=== PATIENT | female | born 1950 | race Caucasian/White ===

== ENCOUNTER 2016-12-06 10:07 | Outpatient (CLI) | payer MEDICARE | END 2016-12-06 10:08 | disposition home or self-care (01) | DX: N83.202 Unspecified ovarian cyst, left side (principal); N83.201 Unspecified ovarian cyst, right side ==

== ENCOUNTER 2018-11-21 08:14 | Emergency (ER) | payer MEDICARE ==
--- NOTE | 2018-11-21 08:38 | ED Physician Documentation ---
PD HPI CHEST PAIN - Stated complaint Stated Complaint: CHEST DISCOMFORT - Chief complaint Chief Complaint: Cardiac - History obtained from History obtained from: Patient - History of Present Illness Timing - onset: How many hours ago (2), Today Timing - onset during: Light activity Timing - details: Abrupt onset, Still present, Waxing and waning Quality: Aching Location: Substernal Radiation: Jaw, Left upper extremity Improved by: Nothing (randomly has icnreases in the pain for 1-2 seconds and then decreases.). No: Rest Worsened by: No: Exertion, Inspiration, Movement Associated symptoms: Shortness of air, Nausea. No: Diaphoresis, Feeling faint / dizzy, General Weakness, Palpitations Similar symptoms before: Has not had sx before Recently seen: Not recently seen Review of Systems Constitutional: denies: Fever, Chills, Myalgias Nose: denies: Rhinorrhea / runny nose, Congestion Throat: denies: Sore throat Cardiac: denies: Palpitations Respiratory: denies: Cough GI: denies: Abdominal Pain, Nausea, Vomiting, Constipation, Diarrhea : denies: Dysuria Neurologic: denies: Head injury PD PAST MEDICAL HISTORY - Past Medical History Past Medical History: Yes Cardiovascular: Hypertension, High cholesterol GI: GERD - 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 - Present Medications Home Medications: Ambulatory Orders Medication Instructions Recorded Confirmed Famotidine 20 mg PO DAILY #20 tablet 11/21/18 Lidocaine Viscous 2% [Xylocaine 5 ml PO Q4H PRN #100 ml 11/21/18 Viscous 2%] - Allergies Allergies/Adverse Reactions: Allergies Allergy/AdvReac Type Severity Reaction Status Date / Time alcohol Allergy Unknown Verified 11/21/18 09:12 opiates Allergy Unknown Uncoded 11/21/18 09:12 - Social History Does the pt smoke?: No Smoking Status: Former smoker Does the pt drink ETOH?: No Does the pt have substance abuse?: No - Immunizations Immunizations are current?: Yes PD ED PE NORMAL - Vitals Vital signs reviewed: Yes - General General: Alert and oriented X 3, No acute distress, Well developed/nourished - HEENT HEENT: Ears normal, Moist mucous membranes, Pharynx benign - Neck Neck: Supple, no meningeal sign, No adenopathy, No JVD - Respiratory Respiratory: Clear bilaterally - Abdomen Abdomen: Soft, Non tender - Derm Derm: Normal color, Warm and dry - Extremities Extremities: No edema, No calf tenderness / cord - Neuro Neuro: Alert and oriented X 3, No motor deficit, Normal speech Results - Vitals Vitals: Vital Signs - 24 hr 11/21/18 11/21/18 08:17 09:21 Temperature 36.7 C Heart Rate 77 70 Respiratory 18 20 Rate Blood Pressure 157/82 H 140/76 H O2 Saturation 97 96 Oxygen O2 Source Room air - Labs Labs: Laboratory Tests 11/21/18 11/21/18 11/21/18 08:25 08:30 08:30 WBC 6.5 RBC 4.73 Hgb 15.3 Hct 44.0 MCV 93.1 MCH 32.3 H MCHC 34.7 RDW 13.0 Plt Count 235 MPV 7.5 L Neut # (Auto) 2.5 Lymph # (Auto) 2.9 [place] # (Auto) 0.7 Eos # (Auto) 0.3 Baso # (Auto) 0.1 Absolute Nucleated RBC 0.00 Nucleated RBC % 0.1 D-Dimer Sodium 140 Potassium 3.3 L Chloride 103 Carbon Dioxide 27 Anion Gap 10.0 BUN 21 H Creatinine 0.8 Estimated GFR (MDRD) 71 L Glucose 99 Calcium 9.5 Total Bilirubin 1.1 H AST 22 ALT 25 Alkaline Phosphatase 94 Troponin I B-Natriuretic Peptide Total Protein 8.1 Albumin 4.6 Globulin 3.5 Albumin/Globulin Ratio 1.3 Lipase 38 Urine Color LIGHT YELLOW Urine Clarity CLEAR Urine pH 7.0 Ur Specific [place] <=1.005 Urine Protein NEGATIVE Urine Glucose (UA) NEGATIVE Urine Ketones NEGATIVE Urine Occult Blood NEGATIVE Urine Nitrite NEGATIVE Urine Bilirubin NEGATIVE Urine Urobilinogen 0.2 (NORMAL) Ur Leukocyte Esterase NEGATIVE Ur Microscopic Review NOT INDICATED Urine Culture Comments NOT INDICATED 11/21/18 11/21/18 11/21/18 08:30 08:30 08:30 WBC RBC Hgb Hct MCV MCH MCHC RDW Plt Count MPV Neut # (Auto) Lymph # (Auto) [place] # (Auto) Eos # (Auto) Baso # (Auto) Absolute Nucleated RBC Nucleated RBC % D-Dimer 387.0 H Sodium Potassium Chloride Carbon Dioxide Anion Gap BUN Creatinine Estimated GFR (MDRD) Glucose Calcium Total Bilirubin AST ALT Alkaline Phosphatase Troponin I < 0.04 B-Natriuretic Peptide 58 Total Protein Albumin Globulin Albumin/Globulin Ratio Lipase Urine Color Urine Clarity Urine pH Ur Specific [place] Urine Protein Urine Glucose (UA) Urine Ketones Urine Occult Blood Urine Nitrite Urine Bilirubin Urine Urobilinogen Ur Leukocyte Esterase Ur Microscopic Review Urine Culture Comments PD MEDICAL DECISION MAKING - ED course Complexity details: re-evaluated patient (She had prompt directory improvement with the GI cocktail. Her EKG and blood tests are normal with the d-dimer being in above the lab normal value but below the commonly accepted literature value of 500 as abnormal. Her chest x-ray showed a similar prior lower base nodule that is been present on prior CT. There is no apparent change. Again no acute processes are seen. At this point we will treat her as esophagitis. She is feeling better at this time.), considered differential, d/w patient Departure - Departure Disposition: 01 Home, Self Care Clinical Impression: Chest discomfort, Esophagitis, acute Condition: Stable Record reviewed to determine appropriate education?: Yes Instructions: ED Chest Pain Atypical Unkn Cause, ED GERD Follow-Up: Chiqui Garza PA [Primary Care Provider] - Prescriptions: Famotidine 20 mg PO DAILY #20 tablet Lidocaine Viscous 2% [Xylocaine Viscous 2%] 5 ml PO Q4H PRN #100 ml PRN Reason: Pain Comments: There is no signs of more significant cause for your chest discomfort. He did seem to get improvement with the antacid and lidocaine. Would presume therefore he has some irritation of the esophagus and we treat that with antacid and acid reducing medicines. He can add the lidocaine periodically with antacid if needed. Recheck if not improved over the next several days or if other symptoms develop concurrent with that. Discharge Date/Time: 11/21/18 10:55
[2018-11-21 08:54] LABS: BASOPHILS # (AUTO) 0.1 10^3/uL (0.0-0.1); BASOPHILS % (AUTO) 0.9 %; EOSINOPHILS # (AUTO) 0.3 10^3/uL (0.0-0.7); EOSINOPHILS % (AUTO) 5.4 %; HGB - HEMOGLOBIN 15.3 g/dL (12.0-16.0); LYMPHOCYTES # (AUTO) 2.9 10^3/uL (1.5-3.5); LYMPHOCYTES % (AUTO) 45.1 %; MEAN CORPUSCULAR HEMOGLOBIN 32.3 pg (27.0-31.0); MEAN CORPUSCULAR HGB CONC 34.7 g/dL (32.0-36.0); MEAN CORPUSCULAR VOLUME 93.1 fL (81.0-99.0); MEAN PLATELET VOLUME 7.5 fL (7.9-10.8); MONOCYTES # (AUTO) 0.7 10^3/uL (0.0-1.0); MONOCYTES % (AUTO) 10.5 %; NEUTROPHILS # (AUTO) 2.5 10^3/uL (1.5-6.6); NEUTROPHILS % (AUTO) 38.1 %; PLT - PLATELET COUNT 235 10^3/uL (130-450); RED BLOOD COUNT 4.73 10^6/uL (4.20-5.40); WHITE BLOOD COUNT 6.5 x10^3/uL (4.8-10.8)
[2018-11-21] MEDS ORDERED: KETOROLAC 15 MG/ML VIAL IVP STA (08:56)
[2018-11-21] MEDS ORDERED: MAG HYDROX/AL HYDROX/SIMETH 30 ML UDC PO STA (08:56)
[2018-11-21] MEDS ORDERED: LIDOCAINE VISCOUS 2% 15 ML UDC MM STA (08:56)
[2018-11-21 09:10] LABS: ALBUMIN 4.6 g/dL (3.2-5.5); ALBUMIN/GLOBULIN RATIO 1.3 (1.0-2.2); BILIRUBIN,TOTAL 1.1 mg/dL (0.2-1.0); CALCIUM 9.5 mg/dL (8.5-10.3); CREATININE 0.8 mg/dL (0.4-1.0); TOTAL PROTEIN 8.1 g/dL (6.7-8.2)
[2018-11-21 09:25] VITALS: BP 140/76
--- NOTE | 2018-11-21 09:25 | XRAY Report ---
Reason: chest pain Procedure Date: 11/21/2018 Accession Number: [id number] / [id number] Procedure: XR - Chest 1 View X-Ray CPT Code: 03119 FULL RESULT: EXAM: CHEST RADIOGRAPHY EXAM DATE: 11/21/2018 09:02 AM. CLINICAL HISTORY: Chest pain. COMPARISON: Chest CT from 05/08/2011. TECHNIQUE: 1 view. FINDINGS: Lungs/Pleura: Mild hazy bibasilar opacities are present. There is a 5 mm nodular opacity overlying the right base. No pleural effusion or pneumothorax. Mediastinum: Cardiomediastinal silhouette and pulmonary vasculature are within normal limits. Other: None. IMPRESSION: 1. Probable mild bibasilar atelectasis. 2. Small nodular opacity overlying the right lung base, possibly pulmonary nodule or soft tissue density. On remote prior chest CT of 2010, small nodules were demonstrated in the right middle and lower lobes and could correspond to the radiographic finding. RADIA
[2018-11-21 09:44] LABS: BILIRUBIN,URINE NEGATIVE (NEGATIVE); GLUCOSE, URINE (UA) NEGATIVE (NEGATIVE); KETONES,URINE (UA) NEGATIVE (NEGATIVE); LEUKOCYTE ESTERASE, URINE NEGATIVE (NEGATIVE); NITRITE,URINE NEGATIVE (NEGATIVE); OCCULT BLOOD,URINE NEGATIVE (NEGATIVE); PROTEIN,URINE NEGATIVE (NEGATIVE); UROBILINOGEN,URINE 0.2 (NORMAL) E.U./dL (NORMAL)
[2018-11-21 09:45] LABS: CLARITY,URINE CLEAR (CLEAR)
[2018-11-21] MEDS ORDERED: FAMOTIDINE 20 MG TABLET PO STA (10:02)
== END 2018-11-21 10:55 | disposition home or self-care (01) ==
LOC: ED 08:14
DX: K20.9 Esophagitis, unspecified (principal); I10 Essential (primary) hypertension; Z87.891 Personal history of nicotine dependence
CPT/HCPCS: 36415; 71045; 80053; 81003; 83690; 83880; 84484; 85025; 85379; 93005; 96374; 99283; 99284; A9270; 81001; 87086

== ENCOUNTER 2020-05-11 09:24 | Emergency (ER) | payer MEDICARE ==
--- NOTE | 2020-05-11 09:51 | ED Physician Documentation ---
PD HPI BACK PAIN - Stated complaint Stated Complaint: HIP/BACK PX - Chief complaint Chief Complaint: Back Pain - History obtained from History obtained from: Patient - History of Present Illness Timing - onset: How many weeks ago (2) Timing - duration: Weeks (2) Timing - details: Abrupt onset, Still present Location: Lower, Left (iliac crest area) Associated symptoms: No: Fever, Weakness, Numbness, Incontinent of urine Worsened by: Movement, Twisting Contributing factors: Twisting (onset with rotational movement but still hurting.) Similar symptoms before: Has not had sx before Recently seen: Not recently seen Review of Systems Constitutional: denies: Fever, Chills Skin: denies: Rash, Lesions Neurologic: denies: Focal weakness, Numbness PD PAST MEDICAL HISTORY - Past Medical History Cardiovascular: Hypertension, High cholesterol GI: GERD - 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: 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 - Present Medications Home Medications: Ambulatory Orders Medication Instructions Recorded Confirmed Famotidine 20 mg PO DAILY #20 tablet 11/21/18 Lidocaine Viscous 2% [Xylocaine 5 ml PO Q4H PRN #100 ml 11/21/18 Viscous 2%] Lidocaine Patch 5% [Lidoderm Patch] 1 patch TOP DAILY PRN #10 patch 05/11/20 Naproxen 375 mg PO TID #20 tablet 05/11/20 Tizanidine HCl 4 mg PO TID PRN #25 capsule 05/11/20 - Allergies Allergies/Adverse Reactions: Allergies Allergy/AdvReac Type Severity Reaction Status Date / Time alcohol Allergy Unknown Verified 05/11/20 09:35 opiates Allergy Unknown Uncoded 05/11/20 09:35 - Social History Does the pt smoke?: No Smoking Status: Former smoker Does the pt drink ETOH?: No Does the pt have substance abuse?: No - Immunizations Immunizations are current?: Yes PD ED PE NORMAL - Vitals Vital signs reviewed: Yes - General General: Alert and oriented X 3, Well developed/nourished, Other (appears uncomfortable with movement, guarded ROM for the low back. ) - Neck Neck: Supple, no meningeal sign, No adenopathy - Cardiac Cardiac: RRR, No murmur - Respiratory Respiratory: Clear bilaterally - Abdomen Abdomen: Soft, Non tender - Back Back: No CVA TTP, No spinal TTP (but is tender at the upper left SI arrea. ) - Derm Derm: Normal color, Warm and dry - Neuro Neuro: Alert and oriented X 3, No motor deficit, No sensory deficit, Normal speech, Other (normal reflexes at knees. ) Results - Vitals Vitals: Oxygen O2 Source Room air - Rads (name of study) lumbar CT Radiology: Prelim report reviewed (no acute findings (arthritic changes and nonspecific disk changes).), See rad report PD MEDICAL DECISION MAKING - ED course Complexity details: reviewed results, considered differential (abrupt pain in older woman, so has some flag for imaging. To get CT to ensure no compression fx, bone pathology, etc. Does not have caudal symptoms so would not need MRI. ), d/w patient ED course: SI injection done left side with Kenalog and Marcaine. She gets nauseated with any opiates and did not like lightheaded with Tramadol, so does not want "pain meds". Will try other modalities anyway. Departure - Departure Disposition: 01 Home, Self Care Clinical Impression: Sacroiliac joint pain Condition: Stable Record reviewed to determine appropriate education?: Yes Instructions: ED Sacroiliitis Follow-Up: Chiqui Garza PA [Primary Care Provider] - Prescriptions: Lidocaine Patch 5% [Lidoderm Patch] 1 patch TOP DAILY PRN #10 patch PRN Reason: pain Naproxen 375 mg PO TID #20 tablet Tizanidine HCl 4 mg PO TID PRN #25 capsule PRN Reason: Spasms Comments: Gentle stretching for the low back. Particularly do sacroiliac type stretching exercises. We can use a low-dose anti-inflammatory for short-term so as to not bother your kidney function. Naproxen anti-inflammatory twice daily with food for only up to 10 days. Tizanidine muscle relaxant 3 times a day to help with stiffness. To that add Tylenol as needed for pain 500 mg 4 times a day. Lidocaine patches to the area that most pain may be helpful as well. Follow-up with your primary care for further evaluation and treatment and potential adding physical therapy. Your CT scan did not show any acute abnormalities. There is some common disc abnormalities and some arthritic changes but no acute compression injury or bone lesions to suggest a more significant cause. Discharge Date/Time: 05/11/20 12:20
[2020-05-11] MEDS ORDERED: ACETAMINOPHEN 500 MG TABLET PO STA (10:20)
[2020-05-11] MEDS ORDERED: TRIAMCINOLONE 40 MG/ML VIAL IM STA (10:20)
[2020-05-11] MEDS ORDERED: methocarbamoL 500 MG TABLET PO STA (10:20)
[2020-05-11] MEDS ORDERED: KETOROLAC 30 MG/ML VIAL IM STA (10:20)
--- NOTE | 2020-05-11 11:51 | CT Report ---
PROCEDURE: LUMBAR SPINE WO INDICATIONS: low back/left SI area pain abruptly TECHNIQUE: Noncontrast 3 mm thick sections acquired from the T12 level to the sacrum. Sagittal and coronal refo rmats were constructed. For radiation dose reduction, the following was used: automated exposure co ntrol, adjustment of mA and/or kV according to patient size. COMPARISON: None. FINDINGS: Image quality: Excellent. Bones: There is dextroscoliosis of the lumbar spine centered at L2-L3 with an approximately 7 degrees [place] angle. Left lateral listhesis of L2 on L3 measuring approximately 4 mm. No listhesis in the sag ittal plane. There is straightening of the usual lumbar lordosis. Disc height loss from L2-L3 through L5-S1 with associated degenerative endplate changes, most pronounced at L2-L3 and L5-S1 where there is both vacuum disc phenomenon and marked loss of disc space with areas of probable [id number] endp late contact. Vertebral body heights are maintained with no evidence of suspicious lytic or blastic o sseous lesion. T12-L1: No spinal canal or neural foraminal stenosis. L1-L2: No spinal canal or neural foraminal stenosis. L2-L3: Disc bulge flattens and indents the ventral thecal sac. Foraminal components of the disc bu lge combine with posterior ossific ridging of the endplates and facet hypertrophy to produce mild angela ateral neural foraminal stenosis. L3-L4: Diffuse disc bulge flattens the ventral thecal sac. Foraminal components of the disc bulge c ombined with facet hypertrophy to produce mild bilateral neural foraminal stenosis L4-L5: Diffuse disc bulge and a superimposed broad-based posterior disc protrusion flatten and inde nt the ventral thecal sac with probable mass effect upon the descending L5 nerve roots within both holden barticular zones. Foraminal components of the disc bulge combined with facet hypertrophy to produce m ild bilateral neural foraminal stenosis. L5-S1: Diffuse disc bulge with a superimposed broad-based posterior disc protrusion. Disc material effaces fat in the right greater than left subarticular zones with probable mass effect upon the desc ending right greater than left S1 nerve roots. Foraminal components of the disc bulge contribute to m ild right and moderate left neural foraminal stenosis. Disc material abuts and may flatten the unders urface of the exiting left L5 nerve root. Sacrum: Visualized upper sacrum appears intact with no evidence of fracture or suspicious destructive osseous lesion. Mild bilateral sacroiliac degenerative changes, worse on the left, characterized by bilateral joint space narrowing with intra-articular air and periarticular subchondral sclerosis. Soft tissues: Partially visualized left ovarian cyst similar in size to pelvic ultrasound obtained 06/2017. Punctate nonobstructing left renal calculi. Postsurgical changes of prior right nephrectomy with metallic surgical clips in the nephrectomy bed region. The duodenum has extended into the right nephrectomy bed adjacent to the posterior right hepatic lobe. There is moderate to severe hepatic edson atosis with a markedly decreased hepatic parenchymal attenuation. Extensive aortic atherosclerosis wi th approximately 60% narrowing of the aorta at the bifurcation (series 3 image 63). Paravertebral and paraspinous soft tissues are within normal limits. IMPRESSION: No findings to explain a prompt onset left low back/sacral pains. Specifically, no evidence of fractu re or suspicious lytic/blastic osseous lesion. Degenerative changes of the left greater the right sacroiliac joints, potential source of pain althou gh an abrupt onset would be unusual for degenerative changes. Lower lumbar spine degenerative changes worst at L5-S1 where there is moderate left neural foraminal stenosis producing mild mass effect upon the exiting left L5 nerve root. Correlate for any correspond ing left L5 radicular symptoms. Facet osteoarthropathy from L3-L4 through L5-S1, an additional potent ial source of chronic low back pain. Punctate nonobstructing left renal calculi. Recent stone passage could potentially explain an abrupt onset left flank/back pain. Postsurgical changes of right nephrectomy. Moderate to severe hepatic steatosis. Extensive aortic atherosclerosis with [id number] approximately 60% narrowing of the distal aort a near the bifurcation. Reviewed by: Cj Ledesma MD on 05/11/2020 11:50 AM PDT Approved by: Cj Ledesma MD on 05/11/2020 11:50 AM PDT Station ID: [id number]
[2020-05-11 12:14] VITALS: BP 141/92
== END 2020-05-11 12:20 | disposition home or self-care (01) ==
LOC: ED 09:24
DX: M53.3 Sacrococcygeal disorders, not elsewhere classified (principal); M25.552 Pain in left hip; M47.817 Spondylosis without myelopathy or radiculopathy, lumbosacral region; K76.0 Fatty (change of) liver, not elsewhere classified; I10 Essential (primary) hypertension; Z87.891 Personal history of nicotine dependence
CPT/HCPCS: 20552; 72131; 96372; 99284; A9270

== ENCOUNTER 2020-09-21 18:21 | Outpatient (CLI) | payer MEDICARE | END 2020-09-21 18:22 | disposition home or self-care (01) | LOC: COV 18:21 | PROVIDERS: ATTEND Family Medicine | DX: R50.9 Fever, unspecified (principal); M79.10 Myalgia, unspecified site; R53.83 Other fatigue; R07.0 Pain in throat; R43.9 Unspecified disturbances of smell and taste; R11.0 Nausea; J34.89 Other specified disorders of nose and nasal sinuses; Z20.828 Contact with and (suspected) exposure to other viral communicable diseases ==

== ENCOUNTER 2022-01-23 08:00 | Outpatient (CLI) | payer MEDICARE ==
[2022-01-23 15:08] LABS: BASOPHILS # (AUTO) 0.1 10^3/uL (0.0-0.1); BASOPHILS % (AUTO) 0.8 %; EOSINOPHILS # (AUTO) 0.7 10^3/uL (0.0-0.7); HCT - HEMATOCRIT 44.2 % (37.0-47.0); HGB - HEMOGLOBIN 15.3 g/dL (12.0-16.0); LYMPHOCYTES # (AUTO) 1.9 10^3/uL (1.5-3.5); LYMPHOCYTES % (AUTO) 21.6 %; MEAN CORPUSCULAR HGB CONC 34.6 g/dL (32.0-36.0); MEAN CORPUSCULAR VOLUME 92.5 fL (81.0-99.0); MEAN PLATELET VOLUME 9.9 fL (7.9-10.8); MONOCYTES # (AUTO) 0.9 10^3/uL (0.0-1.0); MONOCYTES % (AUTO) 9.7 %; NEUTROPHILS # (AUTO) 5.2 10^3/uL (1.5-6.6); NEUTROPHILS % (AUTO) 59.7 %; PLT - PLATELET COUNT 302 10^3/uL (130-450); RED BLOOD COUNT 4.78 10^6/uL (4.20-5.40); RED CELL DISTRIBUTION WIDTH 12.8 % (12.0-15.0); WHITE BLOOD COUNT 8.8 x10^3/uL (4.8-10.8)
[2022-01-23 15:57] LABS: ALBUMIN 4.2 g/dL (3.2-5.5); ALBUMIN/GLOBULIN RATIO 1.5 (1.0-2.2); BILIRUBIN,TOTAL 0.9 mg/dL (0.2-1.0); CALCIUM 9.3 mg/dL (8.5-10.3); CREATININE 0.9 mg/dL (0.4-1.0); POTASSIUM 3.4 mmol/L (3.5-5.0)
== END 2022-01-23 08:01 | disposition home or self-care (01) ==
LOC: LAB.S 08:00
PROVIDERS: ATTEND Emergency Medicine
DX: K30 Functional dyspepsia (principal)
CPT/HCPCS: 36415; 80053; 83690; 85025

== ENCOUNTER 2022-01-25 07:07 | Outpatient (CLI) | payer MEDICARE ==
[2022-01-25 15:22] LABS: BASOPHILS # (AUTO) 0.1 10^3/uL (0.0-0.1); BASOPHILS % (AUTO) 1.5 %; EOSINOPHILS # (AUTO) 0.9 10^3/uL (0.0-0.7); EOSINOPHILS % (AUTO) 15.6 %; HCT - HEMATOCRIT 44.6 % (37.0-47.0); HGB - HEMOGLOBIN 15.3 g/dL (12.0-16.0); LYMPHOCYTES # (AUTO) 1.5 10^3/uL (1.5-3.5); LYMPHOCYTES % (AUTO) 26.9 %; MEAN CORPUSCULAR HEMOGLOBIN 32.8 pg (27.0-31.0); MEAN CORPUSCULAR HGB CONC 34.3 g/dL (32.0-36.0); MEAN CORPUSCULAR VOLUME 95.7 fL (81.0-99.0); MEAN PLATELET VOLUME 10.2 fL (7.9-10.8); MONOCYTES # (AUTO) 0.5 10^3/uL (0.0-1.0); MONOCYTES % (AUTO) 9.5 %; NEUTROPHILS # (AUTO) 2.6 10^3/uL (1.5-6.6); NEUTROPHILS % (AUTO) 46.3 %; PLT - PLATELET COUNT 304 10^3/uL (130-450); RED BLOOD COUNT 4.66 10^6/uL (4.20-5.40); RED CELL DISTRIBUTION WIDTH 13.2 % (12.0-15.0); WHITE BLOOD COUNT 5.5 x10^3/uL (4.8-10.8)
[2022-01-25 15:36] LABS: ALBUMIN/GLOBULIN RATIO 1.5 (1.0-2.2); ALKALINE PHOSPHATASE 86 IU/L (42-121); ALT ALANINE AMINOTRANSFERASE 33 IU/L (10-60); AST ASPARTATE AMINOTRANSFERASE 25 IU/L (10-42); BILIRUBIN,TOTAL 0.9 mg/dL (0.2-1.0); BUN - BLOOD UREA NITROGEN 15 mg/dL (6-20); CALCIUM 9.1 mg/dL (8.5-10.3); CARBON DIOXIDE - CO2 27 mmol/L (21-32); CHLORIDE 103 mmol/L (101-111); CHOL/HDL RATIO 3.3 (<4.4); CHOLESTEROL 142 mg/dL; CREATININE 0.7 mg/dL (0.4-1.0); GFR - MDRD 82 (>89); GLUCOSE 109 mg/dL (70-100); HDL CHOLESTEROL 43 mg/dL; LDL CHOLESTEROL,CALCULATED 81 mg/dL; LDL/HDL RATIO 1.9 (<4.4); POTASSIUM 3.7 mmol/L (3.5-5.0); SODIUM 140 mmol/L (135-145); TOTAL PROTEIN 6.7 g/dL (6.7-8.2); TRIGLYCERIDES 89 mg/dL; VLDL CHOLESTEROL 18 mg/dL
[2022-01-25 15:48] LABS: THYROID STIMULATING HORMONE 0.71 uIU/mL (0.34-5.60)
[2022-01-25 15:50] LABS: FREE T4 (FREE THYROXINE) 0.8 ng/dL (0.58-1.64)
== END 2022-01-25 07:08 | disposition home or self-care (01) ==
LOC: LAB.S 07:07
PROVIDERS: ATTEND Nurse Practitioner Family
DX: I10 Essential (primary) hypertension (principal); E78.5 Hyperlipidemia, unspecified
CPT/HCPCS: 36415; 80053; 80061; 83721; 84439; 84443; 85025

== ENCOUNTER 2022-07-28 11:29 | Emergency (ER) | payer MEDICARE ==
--- NOTE | 2022-07-28 12:11 | XRAY Report ---
PROCEDURE: Chest 1 View X-Ray INDICATIONS: Chest pain TECHNIQUE: One view of the chest was acquired. COMPARISON: CXR 11/21/2018. FINDINGS: Surgical changes and devices: Cholecystectomy clips. Lungs and pleura: No pleural effusions or pneumothorax. Lungs appear clear. Mediastinum: Mediastinal contours appear normal. Heart size is normal. Bones and chest wall: No suspicious bony lesions. Overlying soft tissues appear unremarkable. IMPRESSION: No acute cardiopulmonary abnormality. Reviewed by: Morris Mondragon MD on 07/28/2022 11:09 AM JOY Approved by: Morris Mondragon MD on 07/28/2022 11:09 AM JOY Station ID: [id number]
[2022-07-28 12:14] LABS: BASOPHILS # (AUTO) 0.1 10^3/uL (0.0-0.1); EOSINOPHILS # (AUTO) 0.5 10^3/uL (0.0-0.7); EOSINOPHILS % (AUTO) 8.2 %; HCT - HEMATOCRIT 46.9 % (37.0-47.0); HGB - HEMOGLOBIN 16.1 g/dL (12.0-16.0); LYMPHOCYTES # (AUTO) 2.1 10^3/uL (1.5-3.5); LYMPHOCYTES % (AUTO) 35.9 %; MEAN CORPUSCULAR HEMOGLOBIN 31.8 pg (27.0-31.0); MEAN CORPUSCULAR HGB CONC 34.3 g/dL (32.0-36.0); MEAN CORPUSCULAR VOLUME 92.5 fL (81.0-99.0); MEAN PLATELET VOLUME 8.9 fL (7.9-10.8); MONOCYTES # (AUTO) 0.7 10^3/uL (0.0-1.0); MONOCYTES % (AUTO) 12.8 %; NEUTROPHILS # (AUTO) 2.4 10^3/uL (1.5-6.6); NEUTROPHILS % (AUTO) 41.9 %; PLT - PLATELET COUNT 266 10^3/uL (130-450); RED BLOOD COUNT 5.07 10^6/uL (4.20-5.40); WHITE BLOOD COUNT 5.8 x10^3/uL (4.8-10.8)
[2022-07-28 12:29] LABS: ALBUMIN 4.8 g/dL (3.2-5.5); ALBUMIN/GLOBULIN RATIO 1.5 (1.0-2.2); BILIRUBIN,TOTAL 1.2 mg/dL (0.2-1.0); CALCIUM 9.9 mg/dL (8.5-10.3); TOTAL PROTEIN 8.1 g/dL (6.7-8.2)
--- NOTE | 2022-07-28 12:37 | ED Physician Documentation ---
PD HPI URI - Stated complaint Stated Complaint: HI BLOOD PRESSURE - Chief complaint Chief Complaint: Resp - History obtained from History obtained from: Patient - History of Present Illness Timing - onset: How many days ago (few) Timing duration: Days (few) Timing details: Gradual onset, Still present Associated symptoms: Fever, Chills, Nasal congestion, Sore throat, Productive cough, Dyspnea. No: Swollen nodes, NVD Contributing factors: No: Sick contact, Immunocompromised, Unimmunized, COPD / asthma Worsened by: Activity Similar symptoms before: Has not had sx before Recently seen: Not recently seen Review of Systems Constitutional: reports: Fever, Chills, Myalgias Nose: reports: Rhinorrhea / runny nose, Congestion Throat: denies: Sore throat Cardiac: reports: Other (she noted her bp elevated at home at 200/100). denies: Chest pain / pressure, Pedal edema, Calf pain Respiratory: reports: Dyspnea, Cough, Wheezing Skin: denies: Rash, Lesions Neurologic: reports: Generalized weakness. denies: Focal weakness, Near syncope, Altered mental status, Headache PD PAST MEDICAL HISTORY - Past Medical History Cardiovascular: Hypertension (borderline HTN in the past, and not currently on meds. 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 - Present Medications Home Medications: Ambulatory Orders Medication Instructions Recorded Confirmed Famotidine 20 mg PO DAILY #20 tablet 11/21/18 Lidocaine Viscous 2% [Xylocaine 5 ml PO Q4H PRN #100 ml 11/21/18 Viscous 2%] Lidocaine Patch 5% [Lidoderm Patch] 1 patch TOP DAILY PRN #10 patch 05/11/20 Naproxen 375 mg PO TID #20 tablet 05/11/20 Tizanidine HCl 4 mg PO TID PRN #25 capsule 05/11/20 Albuterol Sulf [Ventolin Hfa 2 - 3 puffs INH QID 10 Days #1 each 07/28/22 Inhaler] Amoxicillin 500 mg PO TID #20 cap 07/28/22 Benzonatate [Tessalon] 100 mg PO TID PRN #20 cap 07/28/22 dexAMETHasone [Decadron] 4 mg PO DAILY #5 tablet 07/28/22 - Allergies Allergies/Adverse Reactions: Allergies Allergy/AdvReac Type Severity Reaction Status Date / Time alcohol Allergy Unknown Verified 05/11/20 09:35 opiates Allergy Unknown Uncoded 05/11/20 09:35 - Social History Does the pt smoke?: No Smoking Status: Former smoker Does the pt drink ETOH?: No Does the pt have substance abuse?: No - Immunizations Immunizations are current?: Yes PD ED PE NORMAL - Vitals Vital signs reviewed: Yes - General General: Alert and oriented X 3, No acute distress, Well developed/nourished - HEENT HEENT: Moist mucous membranes, Pharynx benign - Neck Neck: Supple, no meningeal sign, No adenopathy - Cardiac Cardiac: RRR, No murmur - Respiratory Respiratory: No: Clear bilaterally (no caorse sounds. Does have exp wheezing diffusely. ) - Abdomen Abdomen: Soft, Non tender - Derm Derm: Normal color, Warm and dry - Extremities Extremities: No edema, No calf tenderness / cord - Neuro Neuro: Alert and oriented X 3, No motor deficit, Normal speech Results - Vitals Vitals: Oxygen O2 Source Room air - EKG (time done) 11:43 Rate: Rate (enter#) (91) Rhythm: NSR [place]: Normal Intervals: Normal [place] QRS: Normal Ischemia: Normal ST segments. No: ST elevation c/w ischemia, ST depression - Labs Labs: Laboratory Tests 07/28/22 07/28/22 07/28/22 12:09 12:09 12:09 WBC 5.8 RBC 5.07 Hgb 16.1 H Hct 46.9 MCV 92.5 MCH 31.8 H MCHC 34.3 RDW 13.0 Plt Count 266 MPV 8.9 Neut # (Auto) 2.4 Lymph # (Auto) 2.1 [place] # (Auto) 0.7 Eos # (Auto) 0.5 Baso # (Auto) 0.1 Absolute Nucleated RBC 0.00 Nucleated RBC % 0.0 Sodium 141 Potassium 3.0 L Chloride 101 Carbon Dioxide 27 Anion Gap 13.0 BUN 16 Creatinine 1.0 Estimated GFR (MDRD) 54 L Glucose 129 H Calcium 9.9 Magnesium Total Bilirubin 1.2 H AST 62 H ALT 75 H Alkaline Phosphatase 94 Troponin I High Sens 39.1 H* B-Natriuretic Peptide Total Protein 8.1 Albumin 4.8 Globulin 3.3 Albumin/Globulin Ratio 1.5 Lipase 50 Nasal Adenovirus (PCR) Nasal B. parapertussis DNA (PCR) Nasal Coronavir 229E PCR Nasal Coronavir HKU1 PCR Nasal Coronavir NL63 PCR Nasal Coronavir OC43 PCR Nasal Enterovir/Rhinovir PCR Nasal Influenza B PCR Nasal Influenza A PCR Nasal Parainfluen 1 PCR Nasal Parainfluen 2 PCR Nasal Parainfluen 3 PCR Nasal Parainfluen 4 PCR Nasal RSV (PCR) Nasal B.pertussis DNA PCR Nasal C.pneumoniae (PCR) Edwin Human Metapneumo PCR Nasal M.pneumoniae (PCR) Nasal SARS-CoV-2 (PCR) 07/28/22 07/28/22 07/28/22 12:09 12:09 13:25 WBC RBC Hgb Hct MCV MCH MCHC RDW Plt Count MPV Neut # (Auto) Lymph # (Auto) [place] # (Auto) Eos # (Auto) Baso # (Auto) Absolute Nucleated RBC Nucleated RBC % Sodium Potassium Chloride Carbon Dioxide Anion Gap BUN Creatinine Estimated GFR (MDRD) Glucose Calcium Magnesium 2.3 Total Bilirubin AST ALT Alkaline Phosphatase Troponin I High Sens 34.2 H* B-Natriuretic Peptide 15 Total Protein Albumin Globulin Albumin/Globulin Ratio Lipase Nasal Adenovirus (PCR) Nasal B. parapertussis DNA (PCR) Nasal Coronavir 229E PCR Nasal Coronavir HKU1 PCR Nasal Coronavir NL63 PCR Nasal Coronavir OC43 PCR Nasal Enterovir/Rhinovir PCR Nasal Influenza B PCR Nasal Influenza A PCR Nasal Parainfluen 1 PCR Nasal Parainfluen 2 PCR Nasal Parainfluen 3 PCR Nasal Parainfluen 4 PCR Nasal RSV (PCR) Nasal B.pertussis DNA PCR Nasal C.pneumoniae (PCR) Edwin Human Metapneumo PCR Nasal M.pneumoniae (PCR) Nasal SARS-CoV-2 (PCR) 07/28/22 13:45 WBC RBC Hgb Hct MCV MCH MCHC RDW Plt Count MPV Neut # (Auto) Lymph # (Auto) [place] # (Auto) Eos # (Auto) Baso # (Auto) Absolute Nucleated RBC Nucleated RBC % Sodium Potassium Chloride Carbon Dioxide Anion Gap BUN Creatinine Estimated GFR (MDRD) Glucose Calcium Magnesium Total Bilirubin AST ALT Alkaline Phosphatase Troponin I High Sens B-Natriuretic Peptide Total Protein Albumin Globulin Albumin/Globulin Ratio Lipase Nasal Adenovirus (PCR) NOT DETECTED Nasal B. parapertussis DNA (PCR) NOT DETECTED Nasal Coronavir 229E PCR NOT DETECTED Nasal Coronavir HKU1 PCR NOT DETECTED Nasal Coronavir NL63 PCR NOT DETECTED Nasal Coronavir OC43 PCR NOT DETECTED Nasal Enterovir/Rhinovir PCR DETECTED A Nasal Influenza B PCR NOT DETECTED Nasal Influenza A PCR NOT DETECTED Nasal Parainfluen 1 PCR NOT DETECTED Nasal Parainfluen 2 PCR NOT DETECTED Nasal Parainfluen 3 PCR NOT DETECTED Nasal Parainfluen 4 PCR NOT DETECTED Nasal RSV (PCR) NOT DETECTED Nasal B.pertussis DNA PCR NOT DETECTED Nasal C.pneumoniae (PCR) NOT DETECTED Edwin Human Metapneumo PCR NOT DETECTED Nasal M.pneumoniae (PCR) NOT DETECTED Nasal SARS-CoV-2 (PCR) NOT DETECTED - Rads (name of study) chest xray Radiology: Prelim report reviewed (no acute process), See rad report PD MEDICAL DECISION MAKING - ED course Complexity details: reviewed results (labs mainly good. Trop done through nursing triage was mildly elevated but repeat is same suggesting not acute injury evolving. Consider type 2 injury from ill and HTN. ), considered differential (cough with now sputum, with underlying COPD liekly. Can treat with inhalers and abx, steroids. HTN at home has improved here. CXR clear. ), d/w patient Departure - Departure Disposition: 01 Home, Self Care Clinical Impression: Wheezing Dyspnea Qualifiers: Dyspnea type: shortness of breath Qualified Code(s): R06.02 - Shortness of breath Upper respiratory infection Qualifiers: URI type: unspecified URI Qualified Code(s): J06.9 - Acute upper respiratory infection, unspecified High blood pressure Qualifiers: Hypertension type: unspecified Qualified Code(s): I10 - Essential (primary) hypertension Condition: Stable Record reviewed to determine appropriate education?: Yes Instructions: ED URI Viral W Wheezing Prescriptions: Amoxicillin 500 mg PO TID #20 cap dexAMETHasone [Decadron] 4 mg PO DAILY #5 tablet Benzonatate [Tessalon] 100 mg PO TID PRN #20 cap PRN Reason: Cough Albuterol Sulf [Ventolin Hfa Inhaler] 2 - 3 puffs INH QID 10 Days #1 each Comments: Your chest x-ray is clear without any signs of pneumonia. Your blood pressure had been elevated at home and initially here but has come down to reasonably normal level at this point without any particular intervention. I presume its a stress response from illness. I would not necessarily treat that specifically but watch your blood pressure over the next week or so and see if its back to regular. It does sound like you have a upper respiratory/bronchitis type infection. This can potentially be viral though some of your symptoms are suggestive for bacterial. So take Amoxicillin three times daily for a week. I would treated with an albuterol inhaler 3 puffs 4 times daily for the next several days to week to help with breathing. Extra times if needed. Would also go with Decadron steroid anti-inflammatory to help with bronchial inflammation. This is what contributes to the wheeziness and tight breathing. You can add benzonatate if needed for cough. Your blood test do not show any signs of heart failure or heart attack. There was a mild elevation of one of the blood tests looking at heart muscle and was slightly elevated above normal likely related to the cough trouble breathing and the transient high blood pressure. No signs of heart attack per se. I would anticipate improvement over the next several days. Recheck if worsening or if not improved well over the next 3 to 5 days. [facility] in [place]. Discharge Date/Time: 07/28/22 14:51
[2022-07-28] MEDS ORDERED: ALBUTEROL NEB 2.5 MG/3 ML INH STA (13:03)
[2022-07-28] MEDS ORDERED: DEXAMETHASONE 10 MG/ML VIAL PO STA (13:04)
[2022-07-28] MEDS ORDERED: BENZONATATE 100 MG CAPSULE PO STA (13:04)
[2022-07-28] MEDS ORDERED: CHERRY SYRUP 10 ML UDC PO ONE (13:04)
[2022-07-28] MEDS ORDERED: AMOXICILLIN 250 MG CAPSULE PO STA (14:35)
[2022-07-28 14:50] VITALS: BP 161/91
[2022-07-28 15:23] LABS: B. PARAPERTUSSIS- RESP PCR PAN NOT DETECTED; B. PERTUSSIS- RESP PCR PANEL NOT DETECTED; C. PNEUMONIAE- RESP PCR PANEL NOT DETECTED; CORONAVIRUS 229E-RESP PCR NOT DETECTED; CORONAVIRUS HKU1-RESP PCR NOT DETECTED; CORONAVIRUS NL63-RESP PCR NOT DETECTED; CORONAVIRUS OC43-RESP PCR NOT DETECTED; HUMAN METAPNEUMOVIRUS NOT DETECTED; INFLUENZA A- RESP PCR PANEL NOT DETECTED; INFLUENZA B - RESP PCR PANEL NOT DETECTED; M. PNEUMONIAE- RESP PCR PANEL NOT DETECTED; PARAINFLUENZA VIRUS 1 NOT DETECTED; PARAINFLUENZA VIRUS 2 NOT DETECTED; PARAINFLUENZA VIRUS 3 NOT DETECTED; PARAINFLUENZA VIRUS 4 NOT DETECTED; RHINOVIRUS/ENTEROVIRUS DETECTED; RSV- RESP PCR PANEL NOT DETECTED; SARS-CoV-2 -RESP PCR PANEL NOT DETECTED
== END 2022-07-28 14:51 | disposition home or self-care (01) ==
LOC: ED 11:29
DX: R06.00 Dyspnea, unspecified (principal); R06.2 Wheezing; J06.9 Acute upper respiratory infection, unspecified; I10 Essential (primary) hypertension; Z87.891 Personal history of nicotine dependence; Z20.822 Contact with and (suspected) exposure to COVID-19
CPT/HCPCS: 36415; 71045; 80053; 83690; 83735; 83880; 84484; 85025; 87633; 93005; 94640; 94664; 99283; 99284; A9270

== ENCOUNTER 2023-10-22 07:07 | Outpatient (CLI) | payer MEDICARE ==
[2023-10-22 14:44] LABS: BASOPHILS # (AUTO) 0.1 10^3/uL (0.0-0.1); EOSINOPHILS # (AUTO) 0.4 10^3/uL (0.0-0.7); EOSINOPHILS % (AUTO) 6.8 %; HCT - HEMATOCRIT 43.4 % (37.0-47.0); HGB - HEMOGLOBIN 14.6 g/dL (12.0-16.0); LYMPHOCYTES % (AUTO) 37.9 %; MEAN CORPUSCULAR HEMOGLOBIN 32.2 pg (27.0-31.0); MEAN CORPUSCULAR HGB CONC 33.6 g/dL (32.0-36.0); MEAN CORPUSCULAR VOLUME 95.6 fL (81.0-99.0); MEAN PLATELET VOLUME 9.8 fL (7.9-10.8); MONOCYTES # (AUTO) 0.4 10^3/uL (0.0-1.0); MONOCYTES % (AUTO) 7.6 %; NEUTROPHILS # (AUTO) 2.4 10^3/uL (1.5-6.6); NEUTROPHILS % (AUTO) 46.7 %; PLT - PLATELET COUNT 259 10^3/uL (130-450); RED BLOOD COUNT 4.54 10^6/uL (4.20-5.40); WHITE BLOOD COUNT 5.2 x10^3/uL (4.8-10.8)
[2023-10-22 15:08] LABS: ALBUMIN 4.2 g/dL (3.2-5.5); ALBUMIN/GLOBULIN RATIO 1.4 (1.0-2.2); ALKALINE PHOSPHATASE 82 IU/L (42-121); ALT ALANINE AMINOTRANSFERASE 21 IU/L (10-60); AST ASPARTATE AMINOTRANSFERASE 20 IU/L (10-42); BILIRUBIN,TOTAL 0.8 mg/dL (0.2-1.0); BUN - BLOOD UREA NITROGEN 20 mg/dL (6-20); CALCIUM 9.1 mg/dL (8.5-10.3); CARBON DIOXIDE - CO2 31 mmol/L (21-32); CHLORIDE 104 mmol/L (101-111); CHOL/HDL RATIO 3.7 (<4.4); CHOLESTEROL 139 mg/dL; CREATININE 0.8 mg/dL (0.6-1.3); GFR - MDRD 70 (>89); GLUCOSE 141 mg/dL (74-104); HDL CHOLESTEROL 38 mg/dL; LDL CHOLESTEROL,CALCULATED 69 mg/dL; LDL/HDL RATIO 1.8 (<4.4); POTASSIUM 3.4 mmol/L (3.5-4.5); SODIUM 141 mmol/L (135-145); TOTAL PROTEIN 7.1 g/dL (6.4-8.9); TRIGLYCERIDES 160 mg/dL (48-352); VLDL CHOLESTEROL 32 mg/dL
[2023-10-22 15:18] LABS: THYROID STIMULATING HORMONE 0.43 uIU/mL (0.34-5.60)
[2023-10-22 21:43] LABS: ESTIMATED AVERAGE GLUCOSE 105 mg/dL (70-100); HEMOGLOBIN A1c% 5.3 % (4.27-6.07)
== END 2023-10-22 07:08 | disposition home or self-care (01) ==
LOC: LAB.S 07:07
PROVIDERS: ATTEND Physician Assistant Medical
DX: R10.9 Unspecified abdominal pain (principal); Z13.9 Encounter for screening, unspecified
CPT/HCPCS: 36415; 80053; 80061; 83036; 83721; 84443; 85025

== ENCOUNTER 2023-10-29 14:00 | Outpatient (CLI) | payer MEDICARE ==
[2023-10-29] MEDS ORDERED: DIATRIZOATE MEGLU/DIATRIZO SOD 30 ML BOTTLE PO ONE ×2 (14:14→15:48)
[2023-10-29] MEDS ORDERED: iohexoL-300 100 ML VIAL ONE (14:14)
[2023-10-29] MEDS ORDERED: iohexoL-300 100 ML VIAL IVP ONE (15:47)
--- NOTE | 2023-10-29 16:41 | CT Report ---
PROCEDURE: Chest WO INDICATIONS: PULMONARY NODULE TECHNIQUE: A CT scan of the chest was performed. Intravenous contrast media was not administered. Images were re corded and evaluated at appropriate window settings. Reformats: axial MIP of the chest, coronal and s agittal. For radiation dose reduction, the following was used: automated exposure control, adjustment of mA and/or kV according to patient size. COMPARISON: CT abdomen pelvis 07/20/[address] chest 05/08/2011 FINDINGS: Image quality: Diagnostic. Chest wall and lower neck: No thyroid nodule which requires sonographic follow up. No axillary or sup raclavicular adenopathy by size. Lungs and pleura: No acute groundglass opacities or consolidations. Mild upper lobe emphysematous des nge. Minor subpleural plaquing at the lung bases, particularly medial left lower lobe. No effusions. Several calcified and noncalcified, mainly subpleural and pleural-based nodules bilaterally . Nodule s that were in the [id number] on prior CT of the abdomen are stable size on the current exam and s ome have completely calcified in the interval. Mediastinum: Heart size is normal. Moderate three-vessel coronary artery calcification. No pericardia l effusion. No large vessel abnormality. No mediastinal adenopathy by size criteria. Bones: No aggressive osseous abnormality. Upper Abdomen: Prior right nephrectomy. Mild hepatic steatosis. Otherwise unremarkable upper abdomen. IMPRESSION: 1. Several calcified and noncalcified bilateral lung nodules, several of which are stable compared to the CT from 2016. Recommend 6-[address] to begin to establish two-year stability of previous ly nonvisualized nodules. 2. Moderate three-vessel coronary artery disease. Reviewed by: Maria C Parker MD on 10/29/2023 4:39 PM PST Approved by: Maria C Parker MD on 10/29/2023 4:39 PM PST Station ID: [id number]
--- NOTE | 2023-10-29 16:53 | CT Report ---
PROCEDURE: Abdomen/Pelvis W INDICATIONS: PELVIC MASS, ABD PAIN CONTRAST: 100mL Omni 300 TECHNIQUE: After the administration of intravenous contrast, a CT scan of the abdomen and pelvis was performed. Images were recorded and evaluated at appropriate window settings. Reformats: coronal and sagittal. F or radiation dose reduction, the following was used: automated exposure control, adjustment of mA and /or kV according to patient size. COMPARISON: 07/20/2016 pelvic ultrasound 12/06/2016 FINDINGS: Image quality: Diagnostic. Lower chest: Dictated separately. Liver: Hepatomegaly and moderate hepatic steatosis. Relative hyperdensity in the gallbladder fossa. N o suspicious mass. Gallbladder and biliary tree: Normal wall thickness. No calcifications. No biliary dilatation. Spleen: No splenomegaly. A nodule inferior to the splenic hilum is likely a splenule. There is a nodu le anterior to the inferior spleen, also likely splenule. Both are stable. Pancreas: No mass or ductal dilatation. Adrenals: No adrenal nodule. Kidneys and ureters: The right kidney is surgically absent. Left kidney enhances normally. A few cyst ic lesions appear benign. No hydronephrosis or nephrolithiasis. Left ureter appears normal. Stomach, bowel and peritoneum: Stomach is distended with ingested material. Small bowel loops are wit hin normal limits. Normal quantity of stool in the proximal colon. At the splenic flexure, the colon becomes underdistended for the remainder of its length and demonstrates continuous mild diffuse mucos al hyperemia. The sigmoid and rectum are entirely decompressed. Lymph nodes: No central or retroperitoneal adenopathy. Vessels: Normal caliber vasculature. Heavy distal abdominal aortic calcification. PELVIS Reproductive organs: Surgically absent uterus. Residual follicle associated with the left ovary. Unif ormly low density, possibly finely septated, cystic mass arising in the right posterior adnexa measur ing about 7.6 x 6.7 x 8.2 cm. Bladder: No abnormal wall thickening, accounting for underdistention. Pelvic lymph nodes: No bulky pelvic lymph nodes. Bones: No aggressive osseous abnormality. Other: No significant ventral or inguinal hernia. IMPRESSION: 1. 7.6 cm right posterior adnexal mass, probably ovarian in etiology, not previously present. Further evaluation with ultrasound is recommended. 2. Prior right nephrectomy. No soft tissue in the right renal fossa. 3. Hepatomegaly and moderate hepatic steatosis. 4. Mild mucosal hyperemia from the splenic flexure through the descending colon, nonspecific, but can be seen in the setting of infectious or inflammatory colitis. Correlate with symptomatology. Reviewed by: Maria C Parker MD on 10/29/2023 4:52 PM PST Approved by: Maria C Parker MD on 10/29/2023 4:52 PM PST Station ID: [id number]
== END 2023-10-29 14:01 | disposition home or self-care (01) ==
LOC: DI 14:00
PROVIDERS: ATTEND Physician Assistant Medical
DX: R10.9 Unspecified abdominal pain (principal); D30.00 Benign neoplasm of unspecified kidney; J98.4 Other disorders of lung; Z87.891 Personal history of nicotine dependence; R93.5 Abnormal findings on diagnostic imaging of other abdominal regions, including retroperitoneum; Z90.5 Acquired absence of kidney; K76.0 Fatty (change of) liver, not elsewhere classified; R16.0 Hepatomegaly, not elsewhere classified; K59.89 Other specified functional intestinal disorders; R91.8 Other nonspecific abnormal finding of lung field; I25.10 Atherosclerotic heart disease of native coronary artery without angina pectoris
CPT/HCPCS: 71250; 74177; Q9963; Q9967

== ENCOUNTER 2023-11-13 13:24 | Outpatient (CLI) | payer MEDICARE | END 2023-11-13 13:25 | disposition home or self-care (01) | LOC: LAB.S 13:24 | PROVIDERS: ATTEND Physician Assistant Medical | DX: R19.00 Intra-abdominal and pelvic swelling, mass and lump, unspecified site (principal); R10.9 Unspecified abdominal pain | CPT/HCPCS: 36415; 86304 ==

== ENCOUNTER 2023-11-22 08:06 | Outpatient (CLI) | payer MEDICARE | END 2023-11-22 08:07 | disposition home or self-care (01) | LOC: RT 08:06 | PROVIDERS: ATTEND Obstetrics & Gynecology Gynecologic Oncology | DX: Z01.810 Encounter for preprocedural cardiovascular examination (principal) | CPT/HCPCS: 93005 ==